=== PATIENT | female | born 2000 | race Hispanic/Latino ===

== ENCOUNTER 2024-11-26 19:46 | Emergency (ER) | payer SELFPAY ==
--- NOTE | ~2024-11-26 | XR_ITS ---
CHEST RADIOGRAPH, PA AND LATERAL CLINICAL HISTORY: chest pain . COMPARISON: None available TECHNIQUE: PA and lateral views of the chest. FINDINGS The cardiomediastinal silhouette is unremarkable. The lungs are clear. Visualized osseous structures and soft tissues are unremarkable. IMPRESSION: No focal infiltrate or effusion. Reviewed, dictated and finalized at location A. [facility]
--- NOTE | 2024-11-26 19:50 | ECG_ITS ---
Test Date: 2024-11-26 19:57:20 Measurements Intervals [place] Rate: 92 P: 62 [place]: 133 QRS: 56 QRSD: 77 T: 54 QT: 336 QTc: 416 Interpretive Statements SINUS RHYTHM POSSIBLE LEFT ATRIAL ENLARGEMENT BASELINE ARTIFACT- I, II, AVR, AVL, AVF BORDERLINE ECG No previous ECG available for comparison Electronically Signed On 11-26-2024 20:26:36 [employer] by Abilio Flood D.O.
[2024-11-26 19:59] VITALS: BP 117/67; PULSE 113; RESP 20; TEMP 36.5; O2SAT 100
[2024-11-26 20:10] LABS: Basophils Percent Auto 0.3 % (0.2-1.2); Eosinophils Absolute Auto 0.1 K/mm3 (0-0.3); Hematocrit 37.7 % (37.0-47.0); Hemoglobin 12.7 g/dL (12.0-15.0); Immature Granulocyte Absolute 0.02 K/mm3 (0.00-0.031); Immature Granulocyte Percent A 0.3 % (0-0.5); Lymphocytes Absolute Auto 1.81 K/mm3 (0.9-3.2); Lymphocytes Percent Auto 25.6 % (18.3-44.2); Mean Corpuscular HGB Conc 33.7 g/dl (32-36); Mean Corpuscular Hemoglobin 29.5 pg (26-34); Mean Corpuscular Volume 87.7 fl (80-100); Mean Platelet Volume 9.6 fl (7.4-10.4); Monocytes Absolute Auto 0.3 K/mm3 (0.1-0.6); Neutrophils Absolute Auto 4.9 K/mm3 (1.3-6.7); Neutrophils Percent Auto 68.8 % (45.5-73.1); Platelet Count Result 290 k/mm3 (150-375); Red Cell Distribution Width 12.3 % (11.5-14.5); White Blood Count 7.1 K/mm3 (4.5-10.0)
[2024-11-26 20:22] LABS: Partial Thromboplastin Time 24.7 Seconds (22.3-36.8)
[2024-11-26 20:32] LABS: Alanine Aminotransferase 16 U/L (6-35); Albumin Level 4.8 g/dL (3.5-5.1); Alkaline Phosphatase 69 U/L (38-126); Anion Gap 11 mmol/L (4-12); Aspartate Amino Transferase 25 U/L (14-36); Bilirubin,Total 0.4 mg/dL (0.2-1.3); Blood Urea Nitrogen 14 mg/dL (7-17); Calcium 9.7 mg/dL (8.4-10.2); Carbon Dioxide 24 mmol/L (22-30); Chloride 103 mmol/L (98-107); Estimated CRCL calculation 108 ml/min; Estimated Glomerular Filt Rate > 60; Glucose 133 mg/dL (65-110); Lipase 100 U/L (23-300); Potassium 3.8 mmol/L (3.4-5.0); Sodium 138 mmol/L (137-145)
[2024-11-26 20:43] LABS: Troponin I < 0.012 ng/mL (0.000-0.034)
[2024-11-26 23:04] LABS: Troponin I < 0.012 ng/mL (0.000-0.034)
--- NOTE | 2024-11-27 06:19 | ED_ITS ---
HPI - Chest Pain General Chief Complaint: Chest Pain Stated Complaint: chest pain radiates down her arm Time Seen by Provider: 11/27/24 06:02 Source: patient Mode of arrival: ambulatory Limitations: language barrier (N[place]alese, staff interpreter services Arlette #[id number]) History of Present Illness HPI narrative: Patient presents with complaint of chest pain that started at rest while she was lying down approximately 1 hour prior to arrival. She states that lying down makes it worse. It is okay when she is seated upright but also worse when leaning forward or backwards. She states that she is short of breath when her chest is hurting but otherwise not at rest. The pain radiates down her left arm. No nausea, vomiting, fevers, chills, diaphoresis, or cough. She states the pain was initially sharp and is still present but not as bad currently. It was initially 10/10 in severity. It has happened once previously for years ago when the father of her child . She denies any current recent stressors. Has never seen a atomic process engineer before and denies any underlying cardiac or respiratory issues. No recent sicknesses and denies any sick contacts. She has no PCP. Cardiac risk factors: No hypertension, hyperlipidemia, diabetes mellitus, obesity, family history of a myocardial infarction before the age of 65, personal history, or history of smoker. Related Data Allergies Allergy/AdvReac Type Severity Reaction Status Date / Time No Known Allergies Allergy Verified 11/27/24 07:41 [facility] Social History Social History (Updated 11/27/24 @ 08:50 by Torrie Little MD) Social History: The father of her child is . Smoking status: Never smoker Exam 2 Narrative: GENERAL: Well-appearing, well-nourished, and in no acute distress. HEAD: Normocephalic, atraumatic. EYES: Non injected, non icteric ENT: Nares clear, no rhinorrhea or epistaxis. NECK: Supple. CHEST: Speaking in full sentences. No respiratory distress. Lungs clear to auscultation bilaterally without appreciable consolidation, crackles, wheezes. HEART: Regular rate and rhythm ABDOMEN: Soft, nondistended. EXTREMITIES: Normal range of motion. SKIN: Warm, dry, no rash. NEURO: No focal deficits. Alert and oriented x3. PSYCH: Normal mood and affect. Course Vital Signs Vital signs: Vital Signs Temperature 97.7 F 11/26/24 19:59 Pulse Rate 113 H 11/26/24 19:59 Respiratory Rate 20 11/26/24 19:59 Blood Pressure 117/67 11/26/24 19:59 Pulse Oximetry 100 11/26/24 19:59 Temperature 97.9 F 11/27/24 10:19 Pulse Rate 77 11/27/24 10:19 Respiratory Rate 18 11/27/24 10:19 Blood Pressure 118/74 11/27/24 10:19 Pulse Oximetry 100 11/27/24 10:19 Oxygen Delivery Room Air 11/27/24 06:35 MDM - Chest Pain MDM Narrative Medical decision making narrative: Patient presents with chest pain that started approximately 1 hour prior to arrival. She was otherwise in her baseline state of health prior to this. She notes that she had something like this happened 4 years ago around the time of the of the father of her child but she denies any current recent stressors. No prior workup. In the emergency department she is afebrile with vital signs notable for tachycardia. HEART SCORE History 2 highly suspicious 1 moderately suspicious 0 slightly suspicious History score [address] depression/elevation not due to LBBB, LVH, or digoxin [address] depression but LBBB, LVH, nonspecific repolarization changes 0 normal ECG score 0 Age 2 >/= 65 1 45-64 0 <45 Age score 0 Risk factors (HTN, hypercholesterolemia, DM, obesity with BMI >30, current smoker or cessation </=3mo), positive fam hx with parent or sibling with CVD before age 65, atherosclerotic disease (prior [place], PCI/CABG, CVA/TIA, or peripheral arterial disease) 2 >/= 3 risk factors or history of atherosclerotic dz 1 - 1-2 risk factors 0 no known risk factors Risk factor score 0 Initial Troponin 2 >3 times normal limit 1 1-3 times normal limit 0 less than or equal to normal limit Troponin score 0 Total HEART Score 0; repeat troponin negative. D-dimer normal Had discussed with patient the extent of the work up that would be conducted while in the ED and the diagnoses considered. Provided referral to PCP and discharged in stable condition. Differential Diagnosis Differential diagnosis: Likely stable angina, unstable angina pectoris, atypical chest pain, st elevation myocardial infarction, chest pain, biliary colic and other (pericarditis; takotsubo) Lab Data Attestation: I reviewed the patient's lab results. 11/26/24 20:05 11/26/24 20:05 Labs: Lab Results 11/26/24 11/26/24 11/27/24 Range/Units 20:05 22:35 07:57 WBC 7.1 (4.5-10.0) K/mm3 RBC 4.30 (4.2-5.4) M/mm3 Hgb 12.7 (12.0-15.0) g/dL Hct 37.7 (37.0-47.0) % MCV 87.7 (80-100) fl MCH 29.5 (26-34) pg MCHC 33.7 (32-36) g/dl RDW 12.3 (11.5-14.5) % Plt Count 290 (150-375) k/mm3 MPV 9.6 (7.4-10.4) fl Immature Gran % (Auto) 0.3 (0-0.5) % Neut % (Auto) 68.8 (45.5-73.1) % Lymph % (Auto) 25.6 (18.3-44.2) % Saline % (Auto) 4.0 (2.6-8.5) % Eos % (Auto) 1.0 (0-4.4) % Baso % (Auto) 0.3 (0.2-1.2) % Lymph # (Auto) 1.81 (0.9-3.2) K/mm3 Saline # (Auto) 0.3 (0.1-0.6) K/mm3 Eos # (Auto) 0.1 (0-0.3) K/mm3 Baso # (Auto) 0.0 (0.0-0.1) K/mm3 Abs Immat Gran (auto) 0.02 (0.00-0.031) K/mm3 Absolute Neuts (auto) 4.9 (1.3-6.7) K/mm3 Absolute Nucleated RBC 0.000 (0.0-0.012) K/mm3 Nucleated RBC % 0.0 (0.0-0.2) % PT 13.0 (11.1-14.7) Seconds INR 1.0 APTT 24.7 (22.3-36.8) Seconds D-Dimer < 0.27 (<0.48) ug/mL Sodium 138 (137-145) mmol/L Potassium 3.8 (3.4-5.0) mmol/L Chloride 103 (98-107) mmol/L Carbon Dioxide 24 (22-30) mmol/L Anion Gap 11 (4-12) mmol/L BUN 14 (7-17) mg/dL Creatinine 0.56 L (0.7-1.0) mg/dL Estim Creat Clear Calc 108 ml/min Estimated GFR > 60 (59 - ) Glucose 133 H (65-110) mg/dL Calcium 9.7 (8.4-10.2) mg/dL Total Bilirubin 0.4 (0.2-1.3) mg/dL AST 25 (14-36) U/L ALT 16 (6-35) U/L Alkaline Phosphatase 69 (38-126) U/L Troponin I < 0.012 < 0.012 (0.000-0.034) ng/mL Total Protein 8.0 (6.3-8.2) g/dL Albumin 4.8 (3.5-5.1) g/dL Lipase 100 (23-300) U/L Imaging Data Radiologist's impression: IMPRESSION: No focal infiltrate or effusion. ECG Data EKG #1: Attestation: I personally reviewed and interpreted this ECG as follows: ECG completion date: 11/26/24 ECG completion time: 19:57 Interpretation: Normal sinus rhythm at a rate of 92 beats per minute. UT interval 133. QRS 77. QT/QTC 336/385. Good R-wave progression across the precordial leads. No T- wave inversions. P-waves appear appropriate. Discharge Plan Discharge Clinical Impression: Chest pain Patient Disposition: Home, Self-Care Condition: Stable Instructions: Antibiotic Form, Chest Pain (ED) Additional Instructions: No clear cause of your symptoms was identified from your workup which included EKG, chest x-ray, and labs. Follow-up with primary care physician. Because you do not have 1 the name of the doctors listed below. Alternatively, there is a provider that speaks Nepalese if you prefer though I do not know if they are accepting patients. Her name is Vesta Montoya ([phone]). Acetaminophen/Tylenol (maximum 4000 mg per day) is safe to take with NSAIDs (ibuprofen/Motrin) for pain relief. Patient Language: Nepalese Prescriptions: New ibuprofen 600 mg tablet 600 mg PO TID PRN (Reason: pain) Qty: 30 0RF acetaminophen 500 mg capsule 1,000 mg PO Q6H PRN (Reason: pain) Qty: 30 0RF Follow-up/Referrals: PHYSICIAN NOT ON STAFF,NONSTAFF [Non-Staff] - Jas Brooks MD [Physician] - (family practice) Stand Alone Forms: Work/School Release IP Time of Disposition: 08:40
[2024-11-27 06:44] VITALS: BP 120/77; PULSE 74; RESP 17; O2SAT 100
[2024-11-27 06:45] VITALS: PULSE 77
[2024-11-27 07:40] VITALS: BP 121/86; PULSE 86; RESP 19; O2SAT 100
[2024-11-27] MEDS: ASPIRIN 81 MG CHEWABLE TABLET 324 MG PO (07:43)
[2024-11-27 09:14] LABS: D Dimer < 0.27 ug/mL (<0.48)
[2024-11-27] MEDS: KETOROLAC 30 MG/ML VIAL (*BKC) 15 MG IM (10:08)
[2024-11-27] MEDS: ACETAMINOPHEN 325 MG TABLET 650 MG PO (10:10)
[2024-11-27 10:19] VITALS: BP 118/74; PULSE 77; RESP 18; TEMP 36.6; O2SAT 100
== END 2024-11-27 10:21 | disposition home or self-care (01) ==
PROVIDERS: Student in an Organized Health Care Education/Training Program; Emergency Provider Student in an Organized Health Care Education/Training Program
DX: R07.9 Chest pain, unspecified (principal); R94.31 Abnormal electrocardiogram [ECG] [EKG]
CPT/HCPCS: 36415; 71046; 80053; 83690; 84484; 85025; 85380; 85610; 85730; 93005; 96372; 99284; A9270; J1885